=== PATIENT | female | born 1960 | race Caucasian/White ===

== ENCOUNTER 2018-12-21 08:46 | Emergency (ER) | payer BC ==
[2018-12-21] MEDS ORDERED: Lidocaine 1% MPF ** 5 ML VIAL INJ ONE (11:31)
[2018-12-21 12:13] VITALS: BP 154/89
--- NOTE | 2018-12-22 06:24 | ED ---
Laceration/Wound HPI - HPI Summary HPI Summary: Patient is a 58-year-old female who presents emergency department for facial injury that occurred just prior to arrival. Patient states she was walking down the sidewalk to go to work when she tripped on an uneven sidewalk and fell striking her mouth on the sidewalk. Patient denies loss of consciousness or head injury. No significant past medical history. Patient states tetanus immunization is up-to-date. Symptoms are mild in severity. No current modifying factors. Pt. notes pain to her upper teeth and things they may be use. - History of Current Complaint Stated Complaint: FELL PER PT Time Seen by Provider: 12/21/18 11:12 Hx Obtained From: Patient Pain Intensity: 0 Pain Scale Used: 0-10 Numeric - Allergy/Home Medications Allergies/Adverse Reactions: Allergies Allergy/AdvReac Type Severity Reaction Status Date / Time No Known Allergies Allergy Verified 12/21/18 11:16 PMH/Surg Hx/FS Hx/Imm Hx Previously Healthy: Yes Endocrine/Hematology History: Denies: Hx Diabetes, Hx Thyroid Disease Cardiovascular History: Reports: Hx Hypertension Respiratory History: Denies: Hx Asthma, Hx Chronic Obstructive Pulmonary Disease (COPD) GI History: Denies: Hx Ulcer Musculoskeletal History: Denies: Hx Rheumatoid Arthritis, Hx Osteoporosis - Cancer History Cancer Type, Location and Year: 4560-9808 Breast Hx Chemotherapy: Yes - 2009 Hx Radiation Therapy: Yes - 2009 - Surgical History Surgery Procedure, Year, and Place: 2 lumpectomies R breast [id number] Infectious Disease History: No Infectious Disease History: Denies: Hx Hepatitis, Hx Human Immunodeficiency Virus (HIV), Traveled Outside the [place] in Last 30 Days - Family History Known Family History: Positive: Non-Contributory - Social History Occupation: Employed Full-time Lives: With Family Alcohol Use: Occasionally Substance Use Type: Reports: None Smoking Status (MU): Former Smoker Review of Systems Eyes: Negative ENT: Negative Positive: Other - facial laceration Neurological: Negative Negative: Headache All Other Systems Reviewed And Are Negative: Yes Physical Exam Triage Information Reviewed: Yes Vital Signs On Initial Exam: Initial Vitals Temp Pulse Resp BP Pulse Ox 97.7 F 70 18 156/102 98 12/21/18 08:46 12/21/18 08:46 12/21/18 08:46 12/21/18 08:46 12/21/18 08:46 Vital Signs Reviewed: Yes Appearance: Positive: Well-Appearing - Pt. sitting on bed in NAD. SO present. Skin: Positive: Warm, Dry Head/Face: Positive: Normal Head/Face Inspection, Other - No palpable facial pain. 1 cm irregular laceration noted just below marc border. Eyes: Positive: Normal, EOMI, KYLER ENT: Positive: Other - Superficial 0.5cm laceration noted to the inner mucosa of the lower mid lip with surrouding ecchymosis. Dental: Positive: Other - Dental bridge intact. Mild pain to upper central incisors. Neck: Positive: Supple Musculoskeletal: Positive: Normal, Strength/ROM Intact Neurological: Positive: Normal, Alert, Oriented to Person Place, Time, CN Intact II-III Psychiatric: Positive: Affect/Mood Appropriate - Bhakti Coma Scale Best Eye Response: 4 - Spontaneous Best Motor Response: 6 - Obeys Commands Best Verbal Response: 5 - Oriented Coma Scale Total: 15 Procedures - Laceration/Wound Repair 1 Location: face Description: Irregular Anesthesia: 1.0%, Lido Length, Depth and Shape: 1cm irregular Betadine Prep?: No - hibiclens Laceration/Wound Explored: clean Closure: Single Layer Suture Type: Nylon Number of Sutures: 3 Layer Closure?: No Sterile Dressing Applied?: No Diagnostics - Vital Signs Vital Signs Temp Pulse Resp BP Pulse Ox 12/21/18 12:13 98.6 F 60 16 154/89 96 12/21/18 10:43 97.4 F 61 18 155/89 97 12/21/18 08:46 97.7 F 70 18 156/102 98 - Laboratory Lab Statement: Any lab studies that have been ordered have been reviewed, and results considered in the medical decision making process. Laceration Repair Course/Dx - Course Course Of Treatment: Patient presenting with simple facial laceration that was repaired as noted above. Advised patient to follow-up with her dentist if dental pain persists. Suture removal in 5 days. Keep area clean and dry. Ice intermittently. Tylenol or Motrin for pain as directed. To return to the ear symptoms change or worsen. Patient understands and agrees with plan. - Differential Dx Differental Diagnoses: Hematoma, Laceration - Clinical Impression Provider Diagnoses: Facial laceration, Laceration of oral cavity Discharge - Sign-Out/Discharge Documenting (check all that apply): Patient Departure Patient Received Moderate/Deep Sedation with Procedure: No - Discharge Plan Condition: Good Disposition: HOME Patient Education Materials: Care For Your Stitches (ED), Facial Laceration (ED ) Referrals: Iris Virgen NP [Primary Care Provider] - Additional Instructions: Suture removal in 5 days Keep wound clean and dry Ice intermittently Tylenol or Motrin for pain as directed - Billing Disposition and Condition Condition: GOOD Disposition: Home
== END 2018-12-21 12:07 | disposition home or self-care (01) ==
LOC: ED 08:46
DX: S01.81XA Laceration without foreign body of other part of head, initial encounter (principal); S01.512A Laceration without foreign body of oral cavity, initial encounter; W01.0XXA Fall on same level from slipping, tripping and stumbling without subsequent striking against object, initial encounter; Y92.480 Sidewalk as the place of occurrence of the external cause; I10 Essential (primary) hypertension; Z87.891 Personal history of nicotine dependence
CPT/HCPCS: 12011; 99282